=== PATIENT | female | born 1995 | race Two or more races ===

== ENCOUNTER 2017-05-08 02:04 | Emergency (ER) | payer OTHER ==
[2017-05-08 02:11] VITALS: BP 125/75; PULSE 90; RESP 16; TEMP 97.5; O2SAT 97
--- NOTE | 2017-05-08 02:40 | EDPHY ---
H & P Stated Complaint: cough and congestion Time Seen by Provider: 05/08/17 02:29 HPI/ROS: Chief Complaint: Cough, cold HPI: 21-year-old female whose had 2 days of nonproductive cough, nasal congestion, mild body aches, general cold type symptoms. She has been taking [id number] cough and cold medicines without relief. Denies any fevers or chills. No headache. No nausea or vomiting. ROS: 10 point Review of Systems is negative except as noted in the HPI. PMH: Denies Social History: No smoking, no alcohol, no recreational drug use Family History: non-contributory Physical Exam: Gen: Awake, Alert, No Distress HEENT: Ears: Bilateral TMs are normal Nose: no rhinorrhea Eyes: PERRLA, EOMI Mouth: Moist mucosa Neck: Supple, no JVD Chest: nontender, lungs clear to auscultation Heart: S1, S2 normal, no murmur Abd: Soft, non-tender, no guarding Back: no CVA tenderness, no midline tenderness Ext: no edema, non-tender Skin: no rash Neuro: CN II-XII intact, Sensation grossly intact, Strength 5/5 in bilateral upper and lower extremities - Personal History LMP (Females 10-55): 22-28 Days Ago Current Tetanus Diphtheria and Acellular Pertussis (TDAP): Yes - Medical/Surgical History Hx Asthma: No Hx Chronic Respiratory Disease: No Hx Diabetes: No Hx Cardiac Disease: No Hx Renal Disease: No Hx Cirrhosis: No Hx Alcoholism: No Hx HIV/AIDS: No Hx Splenectomy or Spleen Trauma: No Other PMH: DENIES - Social History Smoking Status: Never smoked Constitutional: Initial Vital Signs Temperature (C) 36.4 C 05/08/17 02:07 Heart Rate 90 05/08/17 02:07 Respiratory Rate 16 05/08/17 02:07 Blood Pressure 125/75 H 05/08/17 02:07 O2 Sat (%) 97 05/08/17 02:07 O2 Delivery Mode Room Air Allergies/Adverse Reactions: No Known Allergies Allergy (Verified 05/06/16 18:10) Home Medications: Medication Instructions Recorded NK [No Known Home Meds] 05/08/17 Medical Decision Making ED Course/Re-evaluation: Patient has viral URI symptoms. She is afebrile. Lungs are clear. No symptoms suggestive of a bacterial etiology. Will discharge her with supportive treatment, follow up with student [facility]. Departure - Departure Disposition: Home, Routine, Self-Care Clinical Impression: URI (upper respiratory infection) Condition: Good Instructions: Upper Respiratory Infection (ED) Additional Instructions: Alternate ibuprofen with acetaminophen every 4 hours as needed for fevers, chills, aches or pains. You may use [id number] cough and cold medicines per package instructions. Do not use these with additional ibuprofen or acetaminophen. Follow up with [facility] in 3-4 days if symptoms are not improving. Referrals: NONE *PRIMARY CARE P,. [Primary Care Provider] - As per Instructions
== END 2017-05-08 02:49 | disposition home or self-care (01) ==
DX: J06.9 Acute upper respiratory infection, unspecified (principal)

== ENCOUNTER 2018-02-26 18:11 | Emergency (ER) | payer OTHER ==
[2018-02-26 18:30] VITALS: BP 140/88
--- NOTE | 2018-02-26 19:12 | EDPHY ---
H & P Stated Complaint: pt c/o not feeling well x4 days, with a cough Time Seen by Provider: 02/26/18 19:01 HPI/ROS: CHIEF COMPLAINT: Runny nose, cough HISTORY OF PRESENT ILLNESS: The patient is a 22-year-old female who comes to the emergency department complaining of a dry cough, runny nose and chills and sweats at home. She took Tylenol cold medicine and is afebrile now. She denies shortness of breath. She denies chest pain. She denies headache or neck pain. No confusion. No GI symptoms. REVIEW OF SYSTEMS: Constitutional: denies: chills, fever, recent illness, recent injury EENTM: See HPI Respiratory: See HPI Cardiac: denies: chest pain, irregular heart rate, lightheadedness, palpitations Gastrointestinal/Abdominal: denies: abdominal pain, diarrhea, nausea, vomiting, blood streaked stools Genitourinary: denies: dysuria, frequency, hematuria, pain Musculoskeletal: denies: joint pain, muscle pain Skin: denies: lesions, rash, jaundice, bruising Neurological: denies: headache, numbness, paresthesia, tingling, dizziness, weakness Hematologic/Lymphatic: denies: blood clots, easy bleeding, easy bruising Immunologic/allergic: denies: HIV/AIDS, transplant EXAM: GENERAL: Well-appearing, well-nourished and in no acute distress. HEAD: Atraumatic, normocephalic. EYES: Pupils equal round and reactive to light, extraocular movements intact, sclera anicteric, conjunctiva are normal. ENT: TMs normal, nares patent, oropharynx clear without exudates. Moist mucous membranes. NECK: Normal range of motion, supple without lymphadenopathy or JVD. LUNGS: Breath sounds clear to auscultation bilaterally and equal. No wheezes rales or rhonchi. HEART: Regular rate and rhythm without murmurs, rubs or gallops. ABDOMEN: Soft, nontender, normoactive bowel sounds. No guarding, no rebound. No masses appreciated. BACK: No CVA tenderness, no spinal tenderness, step-offs or deformities EXTREMITIES: Normal range of motion, no pitting or edema. No clubbing or cyanosis. NEUROLOGICAL: Cranial nerves II through XII grossly intact. Normal speech, normal gait. 5/5 strength, normal movement in all extremities, normal sensation PSYCH: Normal mood, normal affect. SKIN: Warm, dry, normal turgor, no visible rashes or lesions. Source: Patient Exam Limitations: No limitations - Personal History LMP (Females 10-55): 1-7 Days Ago Current Tetanus Diphtheria and Acellular Pertussis (TDAP): Yes - Medical/Surgical History Hx Asthma: No Hx Chronic Respiratory Disease: No Hx Diabetes: No Hx Cardiac Disease: No Hx Renal Disease: No Hx Cirrhosis: No Hx Alcoholism: No Hx HIV/AIDS: No Hx Splenectomy or Spleen Trauma: No Other PMH: DENIES - Family History Significant Family History: No pertinent family hx - Social History Smoking Status: Never smoked Alcohol Use: Sober Drug Use: None Constitutional: Initial Vital Signs Temperature (C) 36.7 C 02/26/18 18:27 Heart Rate 97 02/26/18 18:27 Respiratory Rate 18 02/26/18 18:27 Blood Pressure 140/88 H 02/26/18 18:27 O2 Sat (%) 99 02/26/18 18:27 O2 Delivery Mode Room Air Allergies/Adverse Reactions: No Known Allergies Allergy (Verified 05/06/16 18:10) Home Medications: Medication Instructions Recorded Tylenol 02/26/18 Medical Decision Making ED Course/Re-evaluation: 7:30 p.m. patient eloped after I left the room. She did not have her x-ray or nasal swab. Differential Diagnosis: Partial list of the Differential diagnosis considered include but were not limited to; upper respiratory tract infection, influenza and although unlikely based on the history and physical exam, I also considered pneumonia, sepsis, PE. Departure - Departure Disposition: Against Medical Advice Clinical Impression: Upper respiratory tract infection Qualifiers: URI type: unspecified URI Qualified Code(s): J06.9 - Acute upper respiratory infection, unspecified Condition: Fair Instructions: Upper Respiratory Infection (ED) Referrals: NONE *PRIMARY CARE P,. [Primary Care Provider] - As per Instructions
== END 2018-02-26 19:36 | disposition left against medical advice (07) ==
DX: J06.9 Acute upper respiratory infection, unspecified (principal)

== ENCOUNTER 2018-04-24 20:32 | Emergency (ER) | payer OTHER ==
[2018-04-24] MEDS ORDERED: ONDANSETRON DISINTEGRATING 4 MG TAB PO ONE (20:49)
[2018-04-24] MEDS ORDERED: KETOROLAC 15 MG/1 ML SDV IVP ONE (21:15)
[2018-04-24] MEDS ORDERED: NS 1,000 ML IV ONE (21:15)
[2018-04-24] MEDS ORDERED: ONDANSETRON 4 MG/2 ML VIAL IVP ONE (21:15)
--- NOTE | 2018-04-24 21:23 | EDPHY ---
H & P Stated Complaint: n/v, generalized weakness, wisdom teeth removal yesterday - Personal History LMP (Females 10-55): 1-7 Days Ago Current Tetanus Diphtheria and Acellular Pertussis (TDAP): Yes - Medical/Surgical History Hx Asthma: No Hx Chronic Respiratory Disease: No Hx Diabetes: No Hx Cardiac Disease: No Hx Renal Disease: No Hx Cirrhosis: No Hx Alcoholism: No Hx HIV/AIDS: No Hx Splenectomy or Spleen Trauma: No Other PMH: wisdom teeth removal - Social History Smoking Status: Never smoked Time Seen by Provider: 04/24/18 20:56 HPI/ROS: CHIEF COMPLAINT: Nausea vomiting post wisdom tooth extraction HISTORY OF PRESENT ILLNESS: 22-year-old female postop day 1 post left maxillary mandibular 3rd molar extraction complaining of nausea vomiting after hydrocodone usage. No fever or chills. No abdominal pain. States that she is feeling subjectively dehydrated. She is requesting IV hydration. Prior to my evaluating the patient she had been given oral Zofran per nursing protocols and complains of continued nausea. REVIEW OF SYSTEMS: 10 systems reviewed and negative with the exception of the elements mentioned in the history of present illness PAST MEDICAL & SURGICAL HISTORY: Postop day 1 post left maxillary mandibular 3rd molar extraction SOCIAL HISTORY: Student PHYSICAL EXAM (Prior to examination, patient consented to physical exam, hands were washed and my usual and customary physical exam procedures followed) 1) GENERAL: Well-developed, well-nourished, alert and oriented. Appears uncomfortable 2) HEAD: Normocephalic, atraumatic 3) HEENT: Pupils equal, round, reactive to light bilaterally. Sclera anicteric. Symmetrical faces. Nasolabial fold symmetrical. Oropharynx: Tender to percussion extraction site with no bleeding no soft tissue swelling, no signs of abscess or gingivitis. Floor of mouth soft no evidence of Christophe's angina. [Ears bilaterally with normal tympanic membranes. 4) NECK: Full range of motion, no meningeal signs. 5) LUNGS: Clear auscultation bilaterally, no wheezes, no rhonchi, no retractions. 6) HEART: Regular rate and rhythm, no murmur, no heave, no gallop. 7) ABDOMEN: No guarding, no rebound, no focal tenderness, negative McBurney's, negative Jo's, negative Rovsing's, negative peritoneal sign, 8) MUSCULOSKELETAL: Moving all extremities, no focal areas of tenderness, no obvious trauma. No peripheral edema or discoloration. 9) BACK: No CVA tenderness, no midline vertebral tenderness, no fluctuance, no step-off, no obvious trauma, no visual or palpable abnormality. 10) SKIN: No rash, no petechiae. 11) Psychiatric: Patient is oriented X 3, there is no agitation. DIFFERENTIAL DIAGNOSIS: [ In no particular order including but not limited to postoperative pain, opiate induced nausea, Ludwigs Angina, deep space infection (Popeye Clay) Constitutional: Initial Vital Signs Temperature (C) 36.7 C 04/24/18 20:34 Heart Rate 85 04/24/18 20:34 Respiratory Rate 18 04/24/18 20:34 Blood Pressure 131/61 H 04/24/18 20:34 O2 Sat (%) 96 04/24/18 20:34 O2 Delivery Mode Room Air Allergies/Adverse Reactions: No Known Allergies Allergy (Verified 04/24/18 20:34) Home Medications: Medication Instructions Recorded Tylenol 02/26/18 Amoxicillin 04/24/18 Hydrocodone-Acetamin 5-325 mg 04/24/18 Hydrocodone/APAP 5/325 [Mahaffey 1 tab PO Q6 PRN #7 tab 04/24/18 5/325 (RX)] Ondansetron Odt [Zofran Odt] 4 mg PO Q4PRN PRN #7 tab 04/24/18 Medical Decision Making ED Course/Re-evaluation: 9:23 p.m.: Patient shows no clinical evidence of dehydration however and mother is requesting IV hydration and IV antiemetic as patient is complaining of continued nausea after oral antiemetic. I think her nausea is more than likely secondary to opiate usage. She has no clinical evidence of deep space infection, no evidence of Christophe's angina. No indication for CT imaging at this time. I saw this patient independently based on established practice protocols. Care of patient under supervision of secondary supervising physician Dr Huitron . 10:05 p.m.: Patient given IV hydration. She is able tolerate oral intake. She would like to be discharged. Abdomen remains soft no guarding no rebound. Doubt acute abdominal pathology such as acute appendicitis. (Popeye Clay) - Data Points Medications Given: Discontinued Medications Sodium Chloride (Ns) 1,000 mls @ 0 mls/hr IV ONCE ONE PRN Reason: Wide Open Stop: 04/24/18 21:16 Last Admin: 04/24/18 21:22 Dose: 1,000 mls Ketorolac Tromethamine (Toradol) 15 mg IVP EDNOW ONE Stop: 04/24/18 21:16 Last Admin: 04/24/18 21:22 Dose: 15 mg Ondansetron HCl (Zofran Odt) 4 mg PO EDNOW ONE Stop: 04/24/18 20:50 Last Admin: 04/24/18 20:52 Dose: 4 mg Ondansetron HCl (Zofran) 4 mg IVP EDNOW ONE Stop: 04/24/18 21:16 Last Admin: 04/24/18 21:22 Dose: 4 mg Ondansetron HCl (Zofran Odt 4 Mg Prepack#2) 1 btl TAKEHOME EDNOW ONE Stop: 04/24/18 22:06 Last Admin: 04/24/18 22:13 Dose: 1 btl Departure - Departure Disposition: Home, Routine, Self-Care Clinical Impression: Post-operative nausea and vomiting, Opiate induced nausea Condition: Good Instructions: Ondansetron (By mouth), Acute Nausea and Vomiting (ED) Additional Instructions: Seek medical attention if you develop worsening pain, if you develop fever chills, if you develop inability or difficulty opening or closing her jaw, or any other symptoms that concern you. Referrals: Follow-up, with your oral surgeon on Friday [Other] - As per Instructions Prescriptions: Hydrocodone/APAP 5/325 [Mahaffey 5/325 (RX)] 1 tab PO Q6 PRN #7 tab PRN Reason: Pain, Severe Ondansetron Odt [Zofran Odt] 4 mg PO Q4PRN PRN #7 tab PRN Reason: Nausea
[2018-04-24] MEDS ORDERED: ONDANSETRON 4MG PREPACK#2 BTL TAKEHOME ONE (22:05)
[2018-04-24 22:14] VITALS: BP 112/74
== END 2018-04-24 22:19 | disposition home or self-care (01) ==
DX: R11.2 Nausea with vomiting, unspecified (principal); T40.605A Adverse effect of unspecified narcotics, initial encounter
CPT/HCPCS: 96374; J1885; J2405